=== PATIENT | female | born 2000 ===

== ENCOUNTER 2021-12-30 02:50 | Inpatient (IN) | payer SELFPAY ==
[2021-12-30 04:28] LABS: Bacteria,Urine 1+ /HPF (Negative)
[2021-12-30 04:37] LABS: Bilirubin,Urine Negative (Negative); Blood,Urine 2+ (Negative); Color,Urine Straw (Yellow); PH,Urine 7.5 (5.0-7.0); Protein,Urine <15 mg/dL mg/dL (Negative); Urobilinogen,Urine < 2.0 mg/dL (<2.0)
[2021-12-30] MEDS ORDERED: LACTATED RINGERS 1,000 ML ONE (05:08)
[2021-12-30] MEDS ORDERED: fentaNYL 100 MCG/2 ML INJ IV PRN (05:12)
[2021-12-30] MEDS ORDERED: OXYTOCIN 10 UNIT/1 ML INJ IM PRN (05:12)
[2021-12-30] MEDS ORDERED: LIDOCAINE (2%) 20 MG/1 ML VIAL 20 ML MDV INFILTRATI ONE (05:12)
[2021-12-30] MEDS ORDERED: ONDANSETRON 4 MG/2 ML INJ IV PRN (05:12)
[2021-12-30] MEDS ORDERED: ACETAMINOPHEN 325 MG TAB PO PRN (05:12)
[2021-12-30] MEDS ORDERED: ePHEDrine SULFATE 50 MG/1 ML INJ IV PRN ×2 (05:12→13:26)
[2021-12-30] MEDS ORDERED: TERBUTALINE 1 MG/1 ML INJ SUB-Q PRN (05:12)
[2021-12-30] MEDS ORDERED: CARBOPROST TROMETHAMINE 250 MCG/1 ML INJ IM PRN (05:12)
[2021-12-30] MEDS ORDERED: BUTORPHANOL 2 MG/1 ML INJ IV PRN ×3 (05:12→06:14)
[2021-12-30] MEDS ORDERED: LOPERAMIDE 2 MG CAP PO PRN (05:12)
[2021-12-30] MEDS ORDERED: miSOPROStol 200 MCG TAB PR PRN (05:12)
[2021-12-30] MEDS ORDERED: MINERAL OIL 30 ML ORAL LIQD PO PRN (05:12)
[2021-12-30] MEDS ORDERED: METHYLERGONOVINE MALEATE 0.2 MG/ML VIAL IM PRN (05:12)
[2021-12-30] MEDS ORDERED: LACTATED RINGERS 1,000 ML IV SCH (05:15)
[2021-12-30 05:30] LABS: Hematocrit 42.3 % (30.3-42.9); Hemoglobin 14.5 gm/dl (10.1-14.3); Mean Corpuscular HGB Conc 34 % (30-34); Mean Corpuscular Volume 93 fl (79-97); Platelet Count 154 K/mm3 (140-440); Red Blood Count 4.57 M/mm3 (3.65-5.03); Red Cell Distribution Width 13.4 % (13.2-15.2)
--- NOTE | 2021-12-30 05:41 | Ultrasound Report ---
US OB limited INDICATION / CLINICAL INFORMATION: Pain, contractions COMPARISON: None available. TECHNIQUE: Using a transcutaneous probe, multiple grayscale, color Doppler, and spectral Doppler imag es of the uterus and fetus were captured and stored. FINDINGS: Single cephalic fetus heart rate 128 bpm. Oligohydramnios. Amniotic fluid index 3.8 cm. Biparietal Diameter = 9.05 cm = 36, 5 weeks, days Head Circumference = 31.91 cm = 36, 0 weeks, days Abdominal Circumference = 32.11 cm = 36, 0 weeks, days Femur Length = 6.67 cm = 34, 2 weeks, days Average Ultrasound Age (AUA) = 35, 3 weeks, days. EDC 01/29/2022. Clinical history gestational age is 39 weeks 4 days. Estimated weight = 2732 g; growth percentile 4%.. IMPRESSION: 1. Single living fetus with oligohydramnios as detailed. Signer Name: Gutierrez Broussard II, MD Signed: 12/30/2021 5:36 AM Workstation Name: [id number]
[2021-12-30] MEDS ORDERED: OXYTOCIN DRIP 30 UNITS/500 ML BAG IV SCH ×4 (06:00→12:09)
--- NOTE | 2021-12-30 06:10 | History and Physical Report ---
History of Present Illness Date of examination: 12/30/21 Date of admission: 12/30/2021 Chief complaint: Contractions History of present illness: 21-year-old primigravida at 39-4/7 weeks gestation presents to OB triage complaining of regular and painful contractions every 4 minutes. There is no vaginal bleeding. There is no leaking of fluid. There is good movement. In OB triage, cervical exam was noted to be 1/80%/-2. Bedside OB ultrasound limited revealed oligohydramnios. In addition, estimated weight was in the 4th percentile. At this gestational age, induction of labor is medically indicated to decrease the risk of stillbirth. Patient is admitted to labor and delivery for augmentation of labor. Past History Past Medical History: no pertinent history Past Surgical History: no surgical history Family/Genetic History: none Social history: no significant social history - Obstetrical History Expected Date of Delivery: 01/02/22 Actual Gestation: 39 Week(s) 4 Day(s) : 1 Para: 0 Hx # Term Pregnancies: 0 Number of Living Children: 0 Medications and Allergies Allergies Allergy/AdvReac Type Severity Reaction Status Date / Time No Known Allergies Allergy Verified 12/30/21 04:00 Active Meds: Active Medications Acetaminophen (Acetaminophen 325 Mg Tab) 650 mg PO Q4H PRN PRN Reason: Pain, Mild (1-3) Butorphanol Tartrate (Butorphanol 2 Mg/1 Ml Inj) 1 mg IV Q2H PRN PRN Reason: Pain, Moderate(4-6) LABOR PAIN Butorphanol Tartrate (Butorphanol 2 Mg/1 Ml Inj) 2 mg IV Q2H PRN PRN Reason: Pain , Severe (7-10) Carboprost Tromethamine (Carboprost Tromethamine 250 Mcg/1 Ml Inj) 250 mcg IM ONCE PRN PRN Reason: Uterine Bleeding Ephedrine Sulfate (Ephedrine Sulfate 50 Mg/1 Ml Inj) 10 mg IV Q2M PRN PRN Reason: Hypotension Fentanyl (Fentanyl 100 Mcg/2 Ml Inj) 100 mcg IV Q2H PRN PRN Reason: Pain,Severe (7-10) LABOR PAIN Oxytocin/Sodium Chloride (Pitocin/Ns 30 Unit/500ml) 30 units in 500 mls @ 2 mls/hr IV TITR LNAETTE; Protocol Lactated Ringer's (Lactated Ringers) 1,000 mls @ 125 mls/hr IV DIRECT LANETTE Oxytocin/Sodium Chloride (Pitocin/Ns 30 Unit/500ml) 30 units in 500 mls @ 40 mls/hr IV TITR LANETTE Loperamide HCl (Loperamide 2 Mg Cap) 2 mg PO ONCE PRN PRN Reason: give with Hemabate Methylergonovine Maleate (Methylergonovine Maleate 0.2 Mg/Ml Vial) 0.2 mg IM ONCE PRN PRN Reason: Uterine Bleeding Mineral Oil (Mineral Oil 30 Ml Oral Liqd) 30 ml PO QHS PRN PRN Reason: Constipation Misoprostol (Misoprostol 200 Mcg Tab) 800 mcg NH ONCE PRN PRN Reason: Uterine Bleeding Ondansetron HCl (Ondansetron 4 Mg/2 Ml Inj) 4 mg IV Q8H PRN PRN Reason: Nausea And Vomiting Oxytocin (Oxytocin 10 Unit/1 Ml Inj) 10 unit IM ONCE PRN PRN Reason: Uterine Bleeding Terbutaline Sulfate (Terbutaline 1 Mg/1 Ml Inj) 0.25 mg SUB-Q ONCE PRN PRN Reason: Hyperstimulation/Hypertonicity Review of Systems All systems: negative - Vital Signs Vital signs: Vital Signs Temp Pulse Resp BP 98.2 F 81 18 124/70 12/30/21 03:20 12/30/21 03:20 12/30/21 03:20 12/30/21 03:20 Temp Pulse Resp BP Pulse Ox 98.2 F 81 18 124/70 12/30/21 03:20 12/30/21 03:20 12/30/21 03:20 12/30/21 03:20 - Physical Exam Breasts: Positive: normal Cardiovascular: Regular rate Lungs: Positive: Normal air movement Abdomen: Positive: normal appearance Genitourinary (Female): Positive: normal external genitalia, normal perenium Vulva: both: normal Vagina: Positive: normal moisture Uterus: Positive: enlarged Adnexa: both: normal Anus/Rectum: Positive: normal perianal skin Extremities: Positive: normal Deep Tendon Reflex Grade: Normal +2 - Obstetrical FHR: category 1 Uterine Contraction Monitor Mode: External Cervical Dilatation: 1 Cervical Effacement Percentage: 80 station: -2 Uterine Contraction Frequency (min): 4 Uterine Contraction Pattern: Regular Results Result Diagrams: 12/30/21 05:10 Abnormal lab results 12/30/21 12/30/21 Range/Units 03:30 05:10 WBC 13.4 H (4.5-11.0) K/mm3 Hgb 14.5 H (10.1-14.3) gm/dl Urine pH 7.5 H (5.0-7.0) All other labs normal. Ultrasound: report reviewed (OB Ultrasound Limited= SLIUP. Anterior placenta. Vertex. EFW= 2732 g (4th %-ile). CHRISTOPHER= 3.8 cm.), image reviewed Assessment and Plan - Patient Problems (1) 39 weeks gestation of Current Visit: Yes Status: Acute Plan to address problem: care is up-to-date at [facility]. GBS status is unknown at this time. Currently, there are no risk factors for intrapartum GBS prophylaxis. In the event that those risk factors to develop, then prescribe penicillin per 2010 CDC MMWR guidelines. (2) Oligohydramnios in third trimester Current Visit: Yes Status: Acute Plan to address problem: Amniotic fluid next is 3.9 cm. As such, this patient fulfills the contemporary criteria for small for gesta tional age fetus. Admit to labor and delivery for augmentation of labor. (3) SGA (small for gestational age), , affecting care of mother, antepartum Current Visit: Yes Status: Acute Plan to address problem: Estimated weight is in the 4th percentile. As such, this patient fulfills the contemporary criteria for small for gestational age. Admit to labor and delivery for induction of labor. (4) Encounter for induction of labor Current Visit: Yes Status: Acute Plan to address problem: And lieu of the oligohydramnios and small for gestational age fetus, induction of labor is medical indicated at this gestational age. Prescribed Cytotec orally.
[2021-12-30] MEDS ORDERED: miSOPROStol 25 MCG TAB PO SCH (07:00)
[2021-12-30] MEDS ORDERED: fentaNYL-BUPIV 2 MCG/ML-0.125% 200 MCG/100 ML BAG EPIDURAL ONE (13:14)
[2021-12-30] MEDS ORDERED: NALOXONE 0.4 MG/1 ML INJ IV PRN (13:26)
[2021-12-30] MEDS ORDERED: fentaNYL-BUPIV 2 MCG/ML-0.125% 200 MCG/100 ML BAG EPIDURAL SCH (14:00)
[2021-12-30] MEDS ORDERED: MINERAL OIL 30 ML ORAL LIQD ONE (17:11)
--- NOTE | 2021-12-30 19:04 | Procedure Note ---
OB Delivery Note - Delivery Date of Delivery: 12/30/21 Surgeon: WU LOVE Estimated blood loss: 200cc - Vaginal Delivery presentation: vertex Delivery position: OA Intrapartum events: meconium Delivery augmentation: pitocin Delivery monitor: external FHT, external uterine, internal FHT, internal uterine Route of delivery: Delivery placenta: spontaneous Delivery cord: 3 umbilical vessels Episiotomy: none Delivery laceration: 2nd degree Delivery repair: vicryl, chromic Anesthesia: epidural Delivery comments: SAVD of vaible female infant uncomplicated, with left fist right below the chin; spontaneous delivery of intact placenta with 3v cord. Pt sustained 2nd degree perineal laceration and same repaired with interrupted 3-0 vicryl, then 2-0 chromic running locked suture in a running locked fashion and then subcutaneously. Bimanual done and uterine fundus firm with pitocin. Mom and baby stable. - A at 1 minute: 8 at 5 minutes: 9 Infant Gender: Female (meconium stained fluid; wt 3320g)
--- NOTE | 2021-12-30 19:11 | Post Anesthesia Evaluation ---
- Post Anesthesia Evaluation Patient Participated: Yes Airway Patent: Yes Stable Respiratory Function: Yes Nausea/Vomiting: No Temp > 96.8F: Yes Pain Manageable: Yes Adequeate Hydration: Yes Anesthesia Complications: No Block Receding Appropriately: Yes Patient on Ventilator: No
[2021-12-31] MEDS ORDERED: PROMETHAZINE 25 MG RECT SUPP PR PRN (01:09)
[2021-12-31] MEDS ORDERED: LANOLIN/ZINC/DIMETHICONE (LANSINOH) 7 GM TP PRN ×2 (01:09)
[2021-12-31] MEDS ORDERED: OXYTOCIN DRIP 30 UNITS/500 ML BAG IV SCH (01:09)
[2021-12-31] MEDS ORDERED: PROMETHAZINE 25 MG TAB PO PRN (01:09)
[2021-12-31] MEDS ORDERED: oxyCODONE /ACETAMINOPHEN 5-325MG TAB PO PRN (01:09)
[2021-12-31] MEDS ORDERED: ONDANSETRON 4 MG/2 ML INJ IV PRN (01:09)
[2021-12-31] MEDS ORDERED: BENZOCAINE/MENTHOL 20/0.5% TOP SPRAY 56 GM TP PRN (01:09)
[2021-12-31] MEDS ORDERED: ACETAMINOPHEN 325 MG TAB PO PRN (01:09)
[2021-12-31] MEDS ORDERED: miSOPROStol 100 MCG TAB PR PRN (01:09)
[2021-12-31] MEDS ORDERED: WITCH HAZEL/ GLYCERIN PAD TP PRN (01:09)
[2021-12-31] MEDS ORDERED: MAGNESIUM HYDROXIDE (MOM) ORAL LIQD UDC PO PRN (01:09)
[2021-12-31] MEDS ORDERED: diphenhydrAMINE 25 MG CAP PO PRN (01:09)
[2021-12-31] MEDS: DOCUSATE SODIUM 100 MG CAP PO SCH ×3 (01:27→22:49)
[2021-12-31] MEDS: IBUPROFEN 800 MG TAB PO SCH ×3 (01:28→22:49)
--- NOTE | 2021-12-31 09:31 | Progress Note ---
Assessment and Plan PPD#1 doing well 1. Routine care and discharge pt home Subjective Date of service: 12/31/21 Principal diagnosis: PPD#1 Interval history: pt has no complaints and wants to go home today. pt vag bleed less than a period and pt wants to breast feed. pt denies pelvic pain Objective - Constitutional Vitals: Vital Signs - 12hr 12/31/21 12/31/21 00:02 04:44 Temperature 98.0 F 98.6 F Pulse Rate 98 H 69 Respiratory 16 16 Rate Blood Pressure 98/64 Blood Pressure 103/75 [Right] O2 Sat by Pulse 98 Oximetry General appearance: Present: no acute distress - Neck Neck: normal ROM - Respiratory Respiratory effort: normal - Breasts Breasts: deferred - Cardiovascular Rhythm: regular Extremities: No edema - Gastrointestinal General gastrointestinal: Present: soft, non-tender - Genitourinary Female genitourinary: other (fundus firm, 2cm non-tender below umbilicus) - Neurologic Neurologic: moves all extremities - Psychiatric Psychiatric: cooperative - Labs CBC & Chem 7: 12/30/21 05:10 Medications & Allergies - Medications Allergies/Adverse Reactions: Allergies No Known Allergies Allergy (Verified 12/30/21 04:00) Active Medications: Generic Name Dose Route Start Last Admin Trade Name Freq PRN Reason Stop Dose Admin Acetaminophen 650 mg 12/30/21 05:12 Acetaminophen 325 Mg Tab PO Q4H PRN Pain, Mild (1-3) Acetaminophen 650 mg 12/31/21 01:09 Acetaminophen 325 Mg Tab PO Q4H PRN Pain MILD(1-3)/Fever >100.5/MCCORD Benzocaine/Menthol 1 spray 12/31/21 01:09 12/31/21 01:28 Benzocaine/Menthol 20/0.5% Top Herrick 56 Gm TP 1 spray PRN PRN Administration Episiotomy Pain Bisacodyl 10 mg 12/31/21 01:09 Bisacodyl 10 Mg Rect Supp IN BID PRN Constipation Carboprost Tromethamine 250 mcg 12/30/21 05:12 Carboprost Tromethamine 250 Mcg/1 Ml Inj IM ONCE PRN Uterine Bleeding Diphenhydramine HCl 25 mg 12/31/21 01:09 Diphenhydramine 25 Mg Cap PO Q6H PRN Itching Docusate Sodium 100 mg 12/31/21 01:09 12/31/21 01:27 Docusate Sodium 100 Mg Cap PO 100 mg BID LANETTE Administration Lactated Ringer's 1,000 mls @ 125 mls/hr 12/30/21 05:15 12/30/21 06:30 Lactated Ringers IV 125 mls/hr DIRECT LANETTE Administration Oxytocin/Sodium Chloride 30 units in 500 mls @ 2 mls/hr 12/30/21 12:09 12/30/21 13:00 Pitocin/Ns 30 Unit/500ml IV 12/31/21 23:59 2 ml/hr TITR LANETTE 2 mls/hr Administration Protocol Oxytocin/Sodium Chloride 30 units in 500 mls @ 40 mls/hr 12/31/21 01:09 Pitocin/Ns 30 Unit/500ml IV TITR LANETTE Protocol Ibuprofen 800 mg 12/31/21 01:09 12/31/21 06:15 Ibuprofen 800 Mg Tab PO 800 mg Q6H LANETTE Administration Magnesium Hydroxide 30 ml 12/31/21 01:09 Magnesium Hydroxide (Mom) Oral Liqd Udc PO HS PRN Constipation Methylergonovine Maleate 0.2 mg 12/30/21 05:12 Methylergonovine Maleate 0.2 Mg/Ml Vial IM ONCE PRN Uterine Bleeding Misoprostol 800 mcg 12/31/21 01:09 Misoprostol 100 Mcg Tab IN ONCE PRN Uterine Bleeding Multi-Ingredient Ointment 1 applic 12/31/21 01:09 Lanolin/Zinc/Dimethicone (Lansinoh) 7 Gm TP PRN PRN Sore Nipples Ondansetron HCl 4 mg 12/31/21 01:09 Ondansetron 4 Mg/2 Ml Inj IV Q8H PRN Nausea And Vomiting Oxycodone/Acetaminophen 2 tab 12/31/21 01:09 Oxycodone /Acetaminophen 5-325mg Tab PO Q4H PRN Pain, Moderate (4-6) Promethazine HCl 25 mg 12/31/21 01:09 Promethazine 25 Mg Rect Supp IN Q6H PRN Nausea And Vomiting Promethazine HCl 25 mg 12/31/21 01:09 Promethazine 25 Mg Tab PO Q6H PRN Nausea And Vomiting Sodium Chloride 10 ml 12/31/21 01:09 Sodium Chloride 0.9% 10 Ml Flush Syringe IV 01/06/22 01:08 PRN NR Witch Lena/Glycerin 1 each 12/31/21 01:09 Witch Lena/ Glycerin Pad TP PRN PRN Hemorrhoid/cleansing/soothing
--- NOTE | 2021-12-31 09:35 | Discharge Summary ---
Providers - Providers Date of Admission: 12/30/21 05:12 Date of discharge: 12/31/21 Attending physician: WU LOVE Primary care physician: WU LOVE Hospitalization Reason for admission: IUP at term, other (Oligohydramnios) Delivery: Episiotomy: none Laceration: 2nd degree complications: none Discharge diagnosis: IUP at term delivered baby: female Hospital course: Term preg with oligohydramnio, induction of labor done and pt had uncomplicated vaginal delivery and desired to go home on day #1. course uncomplicated Condition at discharge: Good Disposition: 01 HOME / SELF CARE / HOMELESS Plan - Provider Discharge Summary Additional instructions: [] Smoking cessation referral if applicable(refer to patient education folder for contact #) [] Refer to [facility] Booklet Call your doctor immediately for: * Fever > 100.5 * Heavy vaginal bleeding ( >1 pad per hour) * Severe persistent headache * Shortness of breath * Reddened, hot, painful area to leg or breast * Drainage or odor from incision. * Keep incision clean and dry at all times and follow doctor's instructions regarding bathing/showering - Follow up plan Follow up: WU LOVE MD [Primary Care Provider] - 7 Days
[2021-12-31 16:13] LABS: Hematocrit 39.9 % (30.3-42.9); Hemoglobin 13.6 gm/dl (10.1-14.3); Mean Corpuscular HGB Conc 34 % (30-34); Mean Corpuscular Volume 94 fl (79-97); Platelet Count 145 K/mm3 (140-440); Red Blood Count 4.24 M/mm3 (3.65-5.03); Red Cell Distribution Width 13.8 % (13.2-15.2)
[2021-12-31] MEDS: AMOXICILLIN/K CLAV 875/125MG TAB PO SCH ×2 (22:43→22:49)
[2022-01-01] MEDS: IBUPROFEN 800 MG TAB PO SCH ×2 (05:48→11:03)
[2022-01-01] MEDS: DOCUSATE SODIUM 100 MG CAP PO SCH (10:53)
[2022-01-01] MEDS: AMOXICILLIN/K CLAV 875/125MG TAB PO SCH (10:54)
[2022-01-01] MEDS ORDERED: medroxyPROGESTERone ACETATE 150 MG/ML SYRINGE IM ONE (11:00)
[2022-01-01 15:32] VITALS: BP 99/61
[2022-01-01 15:45] LABS: Basophils % (Auto) 0.3 % (0.0-1.8); Eosinophils # (Auto) 0.2 K/mm3 (0.0-0.4); Eosinophils % (Auto) 1.5 % (0.0-4.3); Hematocrit 41.4 % (30.3-42.9); Hemoglobin 14.2 gm/dl (10.1-14.3); Lymphocytes # (Auto) 1.1 K/mm3 (1.2-5.4); Mean Corpuscular HGB Conc 34 % (30-34); Mean Corpuscular Volume 94 fl (79-97); Monocytes % (Auto) 8.1 % (0.0-7.3); Platelet Count 164 K/mm3 (140-440); Red Blood Count 4.42 M/mm3 (3.65-5.03)
== END 2022-01-01 18:40 | disposition home or self-care (01) | DRG 806 ==
LOC: TRG 02:50 → APU 03:05 → TRG 05:12 → LD 05:12 → OB 20:11
PROVIDERS: ADMIT Obstetrics & Gynecology; ATTEND Obstetrics & Gynecology
PROC: 10E0XZZ Delivery of Products of Conception, External Approach (ICD-10-PCS; principal; 2021-12-30)
PROC: 0KQM0ZZ Repair Perineum Muscle, Open Approach (ICD-10-PCS; 2021-12-30)
PROC: 3E0R3BZ Introduction of Anesthetic Agent into Spinal Canal, Percutaneous Approach (ICD-10-PCS; 2021-12-30)
PROC: 00HU33Z Insertion of Infusion Device into Spinal Canal, Percutaneous Approach (ICD-10-PCS; 2021-12-30)
DX: O77.0 Labor and delivery complicated by meconium in amniotic fluid (principal); O41.03X0 Oligohydramnios, third trimester, not applicable or unspecified; Z37.0 Single live birth; Z20.822 Contact with and (suspected) exposure to COVID-19; O70.1 Second degree perineal laceration during delivery; Z3A.39 39 weeks gestation of pregnancy
CPT/HCPCS: 36415; 76815; 76816; 81001; 85025; 85027; 86592; 86850; 86900; 86901; G0378; J3490; J0595; J1050; J2590; J7120; U0003